=== PATIENT | female | born 1990 | race African-American/Black ===

== ENCOUNTER 2016-06-25 23:13 | Emergency (ER) | payer SELFPAY ==
[~2016-06-25] VITALS: Ht 157.5 cm; Wt 57.2 kg
[2016-06-25 23:15] VITALS: BP 103/68
== END 2016-06-25 23:55 | disposition home or self-care (01) ==
LOC: ER 23:15
DX: F41.0 Panic disorder [episodic paroxysmal anxiety] (principal)
CPT/HCPCS: 99284; A4606; Z7610